=== PATIENT | male | born 1930 | race Caucasian/White ===

== ENCOUNTER 2017-06-21 16:20 | Emergency (ER) | payer MEDICARE, BC ==
[2017-06-21 17:12] VITALS: BP 131/64
--- NOTE | 2017-06-21 17:37 | EDM.PDOC ---
ED HPI GENERAL MEDICAL PROBLEM - General Chief Complaint: Genitourinary Problem Stated Complaint: ISSUES Time Seen by Provider: 06/21/17 17:30 Source of Information: Reports: Patient History Limitations: Reports: No Limitations - History of Present Illness INITIAL COMMENTS - FREE TEXT/NARRATIVE: 87 yo white male c/o constipation feeling since last PM ( Has Ostomy) also PMHx. Prostate Cancer Onset Date: 06/20/17 Onset Time: 09:00 Duration: Hour(s): Location: Reports: Abdomen Quality: Reports: Ache Severity: Moderate Improves with: Reports: None Worsens with: Reports: None Context: Reports: Other (PMHx. Ostomy,Constipation and Prostate Cancer) Associated Symptoms: Reports: No Other Symptoms - Related Data Allergies Allergy/AdvReac Type Severity Reaction Status Date / Time amphotericin B Allergy UNKNOWN Verified 12/01/15 06:04 lactose Allergy Nausea Verified 12/01/15 06:04 lisinopril Allergy Cough Verified 12/01/15 06:04 oxycodone HCl [From Percocet] Allergy Hives Verified 12/01/15 06:04 propoxyphene Allergy UNKNOWN Verified 12/01/15 06:04 simvastatin Allergy Muscle Verified 12/01/15 06:04 Aches terazosin [Terazosin] Allergy UNKNOWN Verified 12/01/15 06:04 verapamil [Verapamil] Allergy UNKNOWN Verified 12/01/15 06:04 Home Meds: Home Meds Cyanocobalamin (Vitamin B-12) [B-12] 1,000 mcg INJECT ASDIRECTED 08/08/14 [ History] Isosorbide Mononitrate [Imdur] 30 mg PO DAILY 08/08/14 [History] Magnesium Oxide 1,500 mg PO TID 08/08/14 [History] Metoprolol Tartrate [Lopressor] 50 mg PO Q12HR 08/08/14 [History] Multivitamin [Multi Vitamin Daily] 1 each PO DAILY 08/08/14 [History] Omeprazole 20 mg PO DAILY 08/08/14 [History] Potassium Gluconate 99 mg PO DAILY 08/08/14 [History] amLODIPine Besylate [Amlodipine Besylate] 5 mg PO DAILY 08/08/14 [History] metFORMIN [Glucophage] 1 tab PO DAILY 11/30/15 [History] Albuterol/Ipratropium [Combivent Respimat] 2 puff IH Q4HR 11/26/16 [History] Amitriptyline [Elavil] 10 mg PO BEDTIME 11/26/16 [History] Furosemide [Furosemide] 40 mg PO DAILY 11/26/16 [History] Insuln Asp Prot/Insulin Aspart [NovoLOG Mix 70-30] 06/21/17 [History] glipiZIDE [Glipizide ER] 5 mg PO DAILY 06/21/17 [History] Past Medical History HEENT History: Reports: Impaired Vision Cardiovascular History: Reports: High Cholesterol, Hypertension Respiratory History: Reports: Other (See Below) Other Respiratory History: one lobe not working Gastrointestinal History: Reports: Chronic Diarrhea, GERD Other Gastrointestinal History: coloscopy Genitourinary History: Reports: Prostate Disorder Musculoskeletal History: Reports: Back Pain, Chronic, Other (See Below) Other Musculoskeletal History: degenerative disc disease, Neurological History: Reports: None Psychiatric History: Reports: None Endocrine/Metabolic History: Reports: Diabetes, Type II Hematologic History: Reports: B12 Deficiency Immunologic History: Reports: None Oncologic (Cancer) History: Reports: Prostate Other Oncologic History: rectal Dermatologic History: Reports: None - Infectious Disease History Infectious Disease History: Reports: Chicken Pox, Measles, Mumps - Past Surgical History GI Surgical History: Reports: Cholecystectomy, Colonoscopy, Colostomy, Hernia Repair/Other Neurological Surgical History: Reports: Laminectomy Musculoskeletal Surgical History: Reports: Other (See Below) Other Musculoskeletal Surgeries/Procedures:: backsurgery Social & Family History - Tobacco Use Smoking Status *Q: Never Smoker Used Tobacco, but Quit: No Second Hand Smoke Exposure: No - Caffeine Use Caffeine Use: Reports: Coffee, Soda - Alcohol Use Days Per Week of Alcohol Use: 0 - Recreational Drug Use Recreational Drug Use: No Drug Use in Last 12 Months: No ED ROS GENERAL - Review of Systems Review Of Systems: See Below Constitutional: Reports: No Symptoms HEENT: Reports: No Symptoms Respiratory: Reports: No Symptoms Cardiovascular: Reports: No Symptoms Endocrine: Reports: No Symptoms GI/Abdominal: Reports: Constipation : Reports: No Symptoms Musculoskeletal: Reports: No Symptoms Skin: Reports: No Symptoms Neurological: Reports: No Symptoms Psychiatric: Reports: No Symptoms Hematologic/Lymphatic: Reports: No Symptoms Immunologic: Reports: No Symptoms ED EXAM, GENERAL - Physical Exam Exam: See Below Exam Limited By: No Limitations General Appearance: Alert, No Apparent Distress Eye Exam: Bilateral Eye: PERRL Ears: Normal External Exam Nose: Normal Inspection Throat/Mouth: Normal Inspection Head: Atraumatic Neck: Normal Inspection Respiratory/Chest: No Respiratory Distress, Lungs Clear Cardiovascular: Normal Peripheral Pulses, Regular Rate, Rhythm GI/Abdominal: Normal Bowel Sounds, Tender (min tenederness to RLQ abdomen), Other (Ostomy on LLQ w/ stool in bag) (Male) Exam: No Hernia Back Exam: Normal Inspection Extremities: Normal Inspection, Normal Range of Motion Neurological: Alert, Oriented, CN II-XII Intact Psychiatric: Normal Affect Skin Exam: Warm Lymphatic: No Adenopathy Course - Vital Signs Last Recorded V/S: Last Vital Signs Temp 37.0 C 06/21/17 17:10 Pulse 86 06/21/17 17:10 Resp 16 06/21/17 17:10 BP 131/64 06/21/17 17:10 Pulse Ox 93 L 06/21/17 17:10 - Orders/Labs/Meds Orders: Active Orders 24 hr Category Date Time Status Abdomen 2V AP Flat Upright [CR] Urgent Exams 06/21/17 17:37 Taken CULTURE URINE [RM] Stat Lab 06/21/17 18:05 Uncollected Levofloxacin [Levaquin] Med 06/21/17 18:23 Once 500 mg PO ONETIME ONE Labs: Laboratory Tests 06/21/17 Range/Units 17:12 Urine Color Yellow (YELLOW) Urine Appearance Clear (CLEAR) Urine pH 6.5 (5.0-9.0) Ur Specific [place] 1.020 (1.005-1.030) Urine Protein 30 H (NEGATIVE) Urine Glucose (UA) Negative (NEGATIVE) Urine Ketones Negative (NEGATIVE) Urine Occult Blood Negative (NEGATIVE) Urine Nitrite Negative (NEGATIVE) Urine Bilirubin Negative (NEGATIVE) Urine Urobilinogen 0.2 (0.2-1.0) mg/dL Ur Leukocyte Esterase Small H (NEGATIVE) Urine RBC Not seen /HPF Urine WBC 5-10 H (0-5/HPF) /HPF Ur Epithelial Cells Rare /HPF Urine Bacteria Few (0-FEW/HPF) /HPF Urine Yeast Many H (0/HPF) /HPF Meds: Medications Discontinued Medications Generic Name Dose Route Start Last Admin Trade Name Freq PRN Reason Stop Dose Admin Fluconazole 100 mg 06/21/17 18:05 Diflucan PO 06/21/17 18:06 ONETIME ONE Departure - Departure Time of Disposition: 18:24 Disposition: Home, Self-Care 01 Condition: Good Clinical Impression: UTI, Urinary tract infectious disease Constipation Qualifiers: Constipation type: slow transit constipation Qualified Code(s): K59.01 - Slow transit constipation - Discharge Information Instructions: Urinary Tract Infection, Adult, [id number], Clean Intermittent Catheterization, Male Forms: ED Department Discharge Additional Instructions: Increase intake of Fluids ( Water / Cranberry juice) Try eating DRIED PRUNES X 2 AND APRICOTS X 2 DAILY TO PROMOTE GOOD BOWEL FUNCTION Take the oral antibiotic for the urinary tract infection: LEVAQUIN 500mg QD # 6 F/U w/ PCP for recheck in 5 days - My Orders Last 24 Hours: My Active Orders 06/21/17 17:37 Abdomen 2V AP Flat Upright [CR] Urgent 06/21/17 18:05 CULTURE URINE [RM] Stat 06/21/17 18:23 Levofloxacin [Levaquin] 500 mg PO ONETIME ONE - Assessment/Plan Last 24 Hours: My Active Orders 06/21/17 17:37 Abdomen 2V AP Flat Upright [CR] Urgent 06/21/17 18:05 CULTURE URINE [RM] Stat 06/21/17 18:23 Levofloxacin [Levaquin] 500 mg PO ONETIME ONE
[2017-06-21] MEDS ORDERED: Fluconazole 100 MG Tab PO ONE (18:05)
[2017-06-21] MEDS ORDERED: Levofloxacin 500 MG Tab PO ONE (18:23)
== END 2017-06-21 18:32 | disposition home or self-care (01) ==
LOC: DL.ED 16:20
DX: K59.01 Slow transit constipation (principal); N39.0 Urinary tract infection, site not specified; I10 Essential (primary) hypertension; E78.00 Pure hypercholesterolemia, unspecified; E11.9 Type 2 diabetes mellitus without complications; Z88.8 Allergy status to other drugs, medicaments and biological substances; Z88.5 Allergy status to narcotic agent; Z88.1 Allergy status to other antibiotic agents; Z79.899 Other long term (current) drug therapy; Z79.84 Long term (current) use of oral hypoglycemic drugs; Z79.4 Long term (current) use of insulin
CPT/HCPCS: 74020; 81001; 99283; A9270

== ENCOUNTER 2017-08-26 17:12 | Inpatient (IN) | payer MEDICARE, BC ==
[2017-08-26] MEDS ORDERED: Albuterol/Ipratropium 3.0-0.5 MG/3 ML Neb Soln NEB ONE (17:34)
[2017-08-26] MEDS: Sodium Chloride 0.9% 10 ML Syringe FLUSH PRN (17:52)
[2017-08-26] MEDS: Furosemide 40 MG/4 ML VIAL IVPUSH ONE (18:35)
--- NOTE | 2017-08-26 18:49 | EDM.PDOC ---
Scribed by Kari Redd 08/26/17 [id number] for Augusto Gardner MD ED HPI GENERAL MEDICAL PROBLEM - General Chief Complaint: Respiratory Problem Stated Complaint: breathing problem [id number] Time Seen by Provider: 08/26/17 17:30 Source of Information: Reports: Patient, Family, Old Records, RN, RN Notes Reviewed History Limitations: Reports: No Limitations - History of Present Illness INITIAL COMMENTS - FREE TEXT/NARRATIVE: Patient arrives from home by POV with progressive shortness of breath and dry cough for over one week. He states that today he became too short of breath to stay at home any longer. He also reports progressively increasing lower extremity edema for one month. Denies fevers or chills. Denies chest pain. He says his appetite has remained good. 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 (Combivent inhaler), Other (see below) - Related Data Allergies Allergy/AdvReac Type Severity Reaction Status Date / Time amphotericin B Allergy UNKNOWN Verified 08/26/17 17:21 lactose Allergy Nausea Verified 08/26/17 17:21 lisinopril Allergy Cough Verified 08/26/17 17:21 oxycodone HCl [From Percocet] Allergy Hives Verified 08/26/17 17:21 propoxyphene Allergy UNKNOWN Verified 08/26/17 17:21 simvastatin Allergy Muscle Verified 08/26/17 17:21 Aches terazosin [Terazosin] Allergy UNKNOWN Verified 08/26/17 17:21 verapamil [Verapamil] Allergy UNKNOWN Verified 08/26/17 17:21 Home Meds: Home Meds Cyanocobalamin (Vitamin B-12) [B-12] 1,000 mcg INJECT ASDIRECTED 08/08/14 [ History] Isosorbide Mononitrate [Imdur] 30 mg PO DAILY 08/08/14 [History] Magnesium Oxide 1,500 mg PO TID 08/08/14 [History] Metoprolol Tartrate [Lopressor] 50 mg PO Q12HR 08/08/14 [History] Multivitamin [Multi Vitamin Daily] 1 each PO DAILY 12/08/14 [History] Omeprazole 20 mg PO DAILY 08/08/14 [History] Potassium Gluconate 99 mg PO DAILY 08/08/14 [History] amLODIPine Besylate [Amlodipine Besylate] 5 mg PO DAILY 08/08/14 [History] metFORMIN [Glucophage] 1 tab PO DAILY 11/30/15 [History] Albuterol/Ipratropium [Combivent Respimat] 2 puff IH Q4HR 11/26/16 [History] Amitriptyline [Elavil] 10 mg PO BEDTIME 11/26/16 [History] Furosemide [Furosemide] 40 mg PO DAILY 11/26/16 [History] Insuln Asp Prot/Insulin Aspart [NovoLOG Mix 70-30] 06/21/17 [History] glipiZIDE [Glipizide ER] 5 mg PO DAILY 06/21/17 [History] Past Medical History HEENT History: Reports: Impaired Vision Cardiovascular History: Reports: Heart Failure, High Cholesterol, Hypertension, Other (See Below) (atrial flutter) Respiratory History: Reports: Other (See Below) (cryptococcal lung disease) Other Respiratory History: one lobe not working Gastrointestinal History: Reports: Chronic Constipation, Chronic Diarrhea, GERD Other Gastrointestinal History: coloscopy Genitourinary History: Reports: BPH, Retention, Urinary, UTI, Recurrent, Other ( See Below) (prostate cancer.) Musculoskeletal History: Reports: Back Pain, Chronic, Other (See Below) Other Musculoskeletal History: degenerative disc disease, Neurological History: Reports: None Psychiatric History: Reports: None Endocrine/Metabolic History: Reports: Diabetes, Type II Hematologic History: Reports: B12 Deficiency Immunologic History: Reports: None Oncologic (Cancer) History: Reports: Prostate Other Oncologic History: rectal Dermatologic History: Reports: None - Infectious Disease History Infectious Disease History: Reports: Chicken Pox, Measles, Mumps - Past Surgical History GI Surgical History: Reports: Cholecystectomy, Colonoscopy, Colostomy, Hernia Repair/Other Neurological Surgical History: Reports: Laminectomy Musculoskeletal Surgical History: Reports: Other (See Below) Other Musculoskeletal Surgeries/Procedures:: backsurgery Social & Family History - Family History Family Medical History: Noncontributory - Tobacco Use Smoking Status *Q: Never Smoker Used Tobacco, but Quit: No Second Hand Smoke Exposure: No - Caffeine Use Caffeine Use: Reports: Coffee, Soda - Alcohol Use Days Per Week of Alcohol Use: 0 - Recreational Drug Use Recreational Drug Use: No Drug Use in Last 12 Months: No - Living Situation & Occupation Living situation: Reports: , with Spouse Occupation: Retired ED ROS GENERAL - Review of Systems Review Of Systems: ROS reveals no pertinent complaints other than HPI. ED EXAM, GENERAL - Physical Exam Exam: See Below Exam Limited By: No Limitations General Appearance: Alert, WD/WN, Mild Distress (slightly labored breathing) Eye Exam: Bilateral Eye: Normal Inspection Ears: Normal External Exam, Normal Canal, Hearing Grossly Normal, Normal TMs Nose: Normal Inspection, Normal Mucosa, No Blood Throat/Mouth: Normal Inspection, Normal Lips, Normal Teeth, Normal Gums, Normal Oropharynx, Normal Voice, No Airway Compromise Head: Atraumatic, Normocephalic Neck: Normal Inspection, Supple, Non-Tender, Full Range of Motion Respiratory/Chest: No Accessory Muscle Use, Decreased Breath Sounds, Rales ( bilateral), Other (Absent breath sounds at left lung base. ) Cardiovascular: Regular Rate, Rhythm, No Murmur, No Rub, JVD, Other (3+ pitting edema to knees bilateral.) GI/Abdominal: Normal Bowel Sounds, Soft, Non-Tender, No Organomegaly, No Distention, No Abnormal Bruit, No Mass (Male) Exam: Deferred Rectal (Males) Exam: Deferred Back Exam: Normal Inspection, Full Range of Motion, NT Extremities: Normal Range of Motion, Non-Tender, Other (normal except for pitting edema as described above.) Neurological: Alert, Oriented, CN II-XII Intact, Normal Cognition, Normal Gait, No Motor/Sensory Deficits Psychiatric: Normal Affect, Normal Mood Skin Exam: Warm, Dry, Intact, Normal Color, No Rash EKG INTERPRETATION EKG Date: 08/26/17 Time: 17:55 Rhythm: A-Flutter Rate (Beats/Min): 60 [place]: Normal P-Wave: Present QRS: Other (4:1 AV block) ST-T: Normal QT: Normal Comparison: No Change (from 10/22/16) Course - Vital Signs Last Recorded V/S: Last Vital Signs Temp 37.0 C 08/26/17 18:20 Pulse 59 L 08/26/17 18:20 Resp 24 H 08/26/17 18:20 BP 135/51 L 08/26/17 18:20 Pulse Ox 82 L 08/26/17 17:33 - Orders/Labs/Meds Orders: Active Orders 24 hr Category Date Time Status EKG 12 Lead [EKG Documentation Completion] [RC] STAT Care 08/26/17 17:37 Active Peripheral IV Care [RC] . DIRECTED Care 08/26/17 17:37 Active RT Aerosol Therapy [RC] ASDIRECTED Care 08/26/17 17:34 Active CULTURE BLOOD [BC] Stat Lab 08/26/17 17:54 Received CULTURE BLOOD [BC] Stat Lab 08/26/17 18:31 Received UA W/MICROSCOPIC [URIN] Stat Lab 08/26/17 18:27 Received Sodium Chloride 0.9% [Saline Flush] Med 08/26/17 17:37 Active 10 ml FLUSH ASDIRECTED PRN Blood Culture x2 Reflex Set [OM.PC] Stat Oth 08/26/17 17:37 Ordered Peripheral IV Insertion Adult [OM.PC] Stat Oth 08/26/17 17:37 Ordered Medication Orders Sodium Chloride (Saline Flush) 10 ml FLUSH ASDIRECTED PRN PRN Reason: Keep Vein Open Last Admin: 08/26/17 17:52 Dose: 10 ml Labs: Laboratory Tests 08/26/17 08/26/17 08/26/17 Range/Units 17:45 17:45 17:54 WBC 5.9 (5.0-10.0) 10^3/uL RBC 3.77 L (4.6-6.2) 10^6/uL Hgb 12.0 L (14.0-18.0) g/dL Hct 37.7 L (40.0-54.0) % MCV 100.0 D (80-100) fL MCH 31.8 (27.0-34.0) pg MCHC 31.8 L (33.0-35.0) g/dL Plt Count 166 (150-450) 10^3/uL Neut % (Auto) 76.6 H (42.2-75.2) % Lymph % (Auto) 11.0 L (20.5-50.1) % Wise % (Auto) 10.7 H (2-8) % Eos % (Auto) 1.2 (1.0-3.0) % Baso % (Auto) 0.5 (0.0-1.0) % Sodium 137 (135-145) mmol/L Potassium 4.1 (3.6-5.0) mmol/L Chloride 97 L (101-111) mmol/L Carbon Dioxide 32.0 H (21.0-31.0) mmol/L Anion Gap 12.1 BUN 25 H (7-18) mg/dL Creatinine 1.2 (0.6-1.3) mg/dL Est Cr Clr Drug Dosing 45.63 mL/min Estimated GFR (MDRD) 57 BUN/Creatinine Ratio 20.83 Glucose 171 H (74-105) mg/dL Lactic Acid 2.8 H (0.5-2.2) mmol/L Calcium 8.7 (8.4-10.2) mg/dl Total Bilirubin 0.9 (0.2-1.0) mg/dL AST 28 (10-42) IU/L ALT 14 (10-60) IU/L Alkaline Phosphatase 34 L (42-121) IU/L Troponin I 0.04 H* (0.00-0.02) ng/ml B-Natriuretic Peptide 273 H (0-100) pg/ml Total Protein 6.8 (6.7-8.2) g/dl Albumin 4.3 (3.2-5.5) g/dl Globulin 2.5 Albumin/Globulin Ratio 1.72 Meds: Medications Generic Name Dose Route Start Last Admin Trade Name Freq PRN Reason Stop Dose Admin Sodium Chloride 10 ml 08/26/17 17:37 08/26/17 17:52 Saline Flush FLUSH 10 ml ASDIRECTED PRN Administration Keep Vein Open Discontinued Medications Generic Name Dose Route Start Last Admin Trade Name Freq PRN Reason Stop Dose Admin Albuterol/Ipratropium 3 ml 08/26/17 17:34 08/26/17 17:42 Duoneb 3.0-0.5 Mg/3 Ml NEB 08/26/17 17:35 3 ml ONETIME ONE Administration Furosemide 40 mg 08/26/17 18:24 08/26/17 18:35 Lasix IVPUSH 08/26/17 18:25 40 mg NOW ONE Administration - Radiology Interpretation Free Text/Narrative:: Chest x-ray: Segmental ateletasis in left lower lobe which is more pronounced as compared to prior x-rays. Chronic elevation of left hemidiaphragm. See Rad report. Departure - Departure Time of Disposition: 18:41 (Admit to Dr. Contreras for Dr. Kemp) Disposition: Admitted As Inpatient 67 Condition: Serious Clinical Impression: Chronic atrial flutter, Hypoxia Pulmonary edema Qualifiers: Chronicity: acute Qualified Code(s): J81.0 - Acute pulmonary edema CHF (congestive heart failure) Qualifiers: Congestive heart failure type: unspecified congestive heart failure type Congestive heart failure chronicity: acute on chronic Qualified Code(s): I50.9 - Heart failure, unspecified - Discharge Information Forms: ED Department Discharge - My Orders Last 24 Hours: My Active Orders 08/26/17 17:34 RT Aerosol Therapy [RC] ASDIRECTED 08/26/17 17:37 EKG 12 Lead [EKG Documentation Completion] [RC] STAT Peripheral IV Care [RC] . DIRECTED Sodium Chloride 0.9% [Saline Flush] 10 ml FLUSH ASDIRECTED PRN Blood Culture x2 Reflex Set [OM.PC] Stat Peripheral IV Insertion Adult [OM.PC] Stat 08/26/17 17:54 CULTURE BLOOD [BC] Stat 08/26/17 18:27 UA W/MICROSCOPIC [URIN] Stat 08/26/17 18:31 CULTURE BLOOD [BC] Stat - Assessment/Plan Last 24 Hours: My Active Orders 08/26/17 17:34 RT Aerosol Therapy [RC] ASDIRECTED 08/26/17 17:37 EKG 12 Lead [EKG Documentation Completion] [RC] STAT Peripheral IV Care [RC] . DIRECTED Sodium Chloride 0.9% [Saline Flush] 10 ml FLUSH ASDIRECTED PRN Blood Culture x2 Reflex Set [OM.PC] Stat Peripheral IV Insertion Adult [OM.PC] Stat 08/26/17 17:54 CULTURE BLOOD [BC] Stat 08/26/17 18:27 UA W/MICROSCOPIC [URIN] Stat 08/26/17 18:31 CULTURE BLOOD [BC] Stat I have read and agree with the documentation that has been completed regarding this visit. By signing this record, I attest that the documentation was completed in my physical presence and is an accurate record of the encounter.
[2017-08-26] MEDS ORDERED: CLOBETASOL PROPIONATE 0.05% TOP PRN (21:06)
[2017-08-26] MEDS: cefTRIAXone 1 GM Vial IVPUSH SCH (22:32)
[2017-08-26] MEDS: Amitriptyline 10 MG Tab PO SCH (22:32)
[2017-08-26] MEDS: Albuterol/Ipratropium 3.0-0.5 MG/3 ML Neb Soln NEB PRN (23:06)
[2017-08-27] MEDS: Albuterol/Ipratropium 3.0-0.5 MG/3 ML Neb Soln NEB PRN (03:29)
[2017-08-27] MEDS ORDERED: Furosemide 40 MG/4 ML VIAL IVPUSH ONE (04:06)
[2017-08-27] MEDS: Omeprazole 20 MG Cap.CR PO SCH (06:15)
[2017-08-27] MEDS: Isosorbide Mononitrate 30 MG Tab.ER PO SCH (06:20)
[2017-08-27] MEDS ORDERED: NOVOLOG MIX SQ SCH ×2 (08:00→09:00)
[2017-08-27] MEDS: amLODIPine 5 MG Tab PO SCH (09:15)
[2017-08-27] MEDS: glipiZIDE 5 MG Tab PO SCH ×2 (09:15→18:19)
[2017-08-27] MEDS: Multivitamins,Therapeutic Tab PO SCH (09:15)
[2017-08-27] MEDS: Metoprolol Tartrate 50 MG Tab PO SCH ×2 (09:16→21:41)
[2017-08-27] MEDS: Insulin Aspart 100 Units/ML 3 ML Pen SUBCUT SCH ×4 (09:19→21:44)
--- NOTE | 2017-08-27 11:04 | HP ---
HISTORY OF PRESENT ILLNESS: Mr. Guerra is an 87-year-old male, who was admitted because of worsening shortness of breath in the last 1 week associated with cough of whitish phlegm. No reported fever or chills. Noticed some chest discomfort, which is better with sitting up. The patient was admitted in [place] for CHF exacerbation last October. He reports compliance with his diuretics. However, family member might have suspected he might have added some salt on his diet. Noticed worsening of the lower extremity edema, right more than the left. Three days ago, he just obtained a pair of compression socks from them. Otherwise bowel movement has been regular. He has a colostomy bag and they have been getting output regularly with no melena or hematochezia. The also noticed some weight gain. PAST MEDICAL HISTORY: Diabetes, CHF, anemia, rectal cancer, B12 deficiency, hypertension, history of urinary tract infection. The patient also does self catheterization at home. Social History: lives at home with who has a diagnosis of dementia. MEDICATIONS: Reviewed. Allergies: reviewed. REVIEW OF SYSTEMS: Ten systems reviewed and were negative except for those mentioned above. PHYSICAL EXAMINATION: Vital Signs: Blood pressure 135/51, heart rate 59 beats per minute, respirations 24 breaths per minute, oxygen saturation 93% on 3 L. General Appearance: Awake, in distress. HEENT: Normocephalic, atraumatic. Eyes, anicteric sclerae. CVS: Regular rate and rhythm. Chest: Symmetric chest expansion. Lungs: Bilateral air entry. Crackles noted both lung arndt. Gastrointestinal: Soft. Normoactive bowels. Extremities: Grade 2 pitting edema. Skin: Some chronic hyperpigmentation in both lower extremities. Good posterior tibial pulses bilaterally. Dorsalis pedis, unable to be felt due to edema. Neurologic: Awake, alert, and oriented. LABORATORY DATA: Initial troponin 0.04. Hemoglobin 12.0, platelet count 166. GFR is 57, lactic acid 2.8. Urinalysis; urine wbc's 40-50 with leukocyte esterase, small. ASSESSMENT/PLAN: Patient with worsening shortness of breath and leg edema. The patient with a history of CHF. Patient was noted to be given IV Lasix in the emergency room. We will continue to monitor strict input and output, monitoring daily weights. Salt restricted diet. Continue with oxygen supplementation with the aim to be tapered off oxygen and able to maintain oxygen saturation on ambulation. Having incentive spirometry and flutter valve. Abnormal troponin may be from demand ischemia, we will repeat that. The patient denies any anginal chest pain. Continue the rest of his medications. Continue with compression wraps. Blood cultures were drawn in the emergency room, we will follow up on the results, but urinalysis with findings of possible infection and with his history of UTI, we will do IV Rocephin. His hemoglobin is in the anemic range, which is chronic for him. We will monitor periodically. We will follow the patient in the medical-surgical bed. CODE STATUS: Full. [facility] /[id number] MTDD
[2017-08-27] MEDS: NOVOLOG MIX SUBCUT SCH ×2 (12:47→17:42)
[2017-08-27] MEDS: ELIQUIS 2.5 MG PO SCH ×2 (12:53→21:45)
[2017-08-27] MEDS: MYRBETRIQ 50 MG PO SCH (12:56)
[2017-08-27] MEDS: POTASSIUM GLUCONATE 595 MG PO SCH ×2 (12:59→21:49)
[2017-08-27] MEDS: MAGNESIUM OXIDE 500 MG PO SCH ×2 (16:56→21:46)
[2017-08-27] MEDS ORDERED: Insulin Lispro Protamine/Lispro 75-25 100 Units/ML 10 ML Vial SUBCUT SCH (17:00)
[2017-08-27] MEDS: Furosemide 40 MG/4 ML VIAL IVPUSH SCH (18:00)
[2017-08-27] MEDS ORDERED: Aspirin 81 MG Tab.EC PO SCH (18:00)
[2017-08-27] MEDS: Furosemide 40 MG/4 ML VIAL IVPUSH ONE (18:10)
[2017-08-27] MEDS ORDERED: Amitriptyline 10 MG Tab PO SCH (21:00)
[2017-08-27] MEDS: Amitriptyline 10 MG Tab PO SCH (21:36)
[2017-08-27] MEDS: Sodium Chloride 0.9% 10 ML Syringe FLUSH PRN (22:34)
[2017-08-27] MEDS: cefTRIAXone 1 GM Vial IVPUSH SCH (22:36)
[2017-08-28] MEDS: Isosorbide Mononitrate 30 MG Tab.ER PO SCH (06:12)
[2017-08-28] MEDS: Omeprazole 20 MG Cap.CR PO SCH (06:14)
[2017-08-28 06:50] LABS: CHLORIDE,CL 90 mmol/L (101-111); SODIUM,NA 138 mmol/L (135-145)
[2017-08-28] MEDS: glipiZIDE 5 MG Tab PO SCH (08:50)
[2017-08-28] MEDS: NOVOLOG MIX SUBCUT SCH ×2 (08:50→13:29)
[2017-08-28] MEDS: amLODIPine 5 MG Tab PO SCH (08:50)
[2017-08-28] MEDS: ELIQUIS 2.5 MG PO SCH (08:51)
[2017-08-28] MEDS: MAGNESIUM OXIDE 500 MG PO SCH ×2 (08:51→13:32)
[2017-08-28] MEDS: Multivitamins,Therapeutic Tab PO SCH (08:51)
[2017-08-28] MEDS: Metoprolol Tartrate 50 MG Tab PO SCH (08:51)
[2017-08-28] MEDS: Insulin Aspart 100 Units/ML 3 ML Pen SUBCUT SCH ×2 (08:51→13:30)
[2017-08-28] MEDS: Furosemide 40 MG/4 ML VIAL IVPUSH SCH (08:51)
[2017-08-28] MEDS ORDERED: Furosemide 40 MG/4 ML VIAL IVPUSH ONE (09:42)
--- NOTE | 2017-08-28 09:57 | CR ---
CLINICAL HISTORY: 87-year-old male complaining of shortness of breath. INTERPRETATION: Left infrahilar mass and ipsilateral lower lobe atelectasis that appears in retrospec t to have been present on [address] scan chest with this patient with right supr aclavicular central venous line. Chronic cardiomegaly but no current cephalization of vascular flow, signs of alveolar edema or apprec iable dependent new pleural fluid accumulation. No other focal lobar consolidation (infiltrate/atelectasis). Chronic asymmetric elevation left hemidi aphragm consistent with underlying lower lobe atelectasis on the left. Abnormality left lung base sim ilar in appearance to 22 October 2016 exam (suggest left infrahilar mass lesion with underlying lowe r lobe atelectasis/collapse.
--- NOTE | 2017-08-28 10:02 | PN ---
DATE: 08/27/2017 HISTORY OF PRESENT ILLNESS: Mr. Guerra is an 87-year-old male, admitted because of shortness of breath, admitted as a case of acute exacerbation. Was given IV Lasix yesterday and diuresing well. Noticed some improvement of his breathing, still coughing. No chest pain. Able to get good sleep last night. Ambulating around the room without any problems. Still on oxygen supplementation. PHYSICAL EXAMINATION: Vital Signs: Blood pressure 132/54, heart rate of 63 beats per minute, respirations 20 breaths per minute, oxygen saturation 93%, temperature 98.4. General Appearance: Awake, not in distress. Speaking in sentences. CVS: Regular rate and rhythm. Abdomen: Soft. Normoactive bowel sounds. Extremities: Bilateral pitting edema. LABORATORIES: Potassium 3.5, creatinine 1.2. GFR 57. Creatinine clearance 46. Troponin is staying the same at 0.04. Lactic acid is normalized at 0.8. ASSESSMENT AND PLAN: We will continue to monitor input and output and daily weights. The patient is now losing some weight and is negative balance. We will try to wean off oxygen supplementation, and we will have his oxygen measured on ambulation. We will recheck BMP, BNP, and CBC tomorrow. As far as diabetes, he had an episode of hypoglycemia. We will hold nighttime dose of insulin. We will continue to monitor sugars. The patient is very good with managing his own sugars and insulin at home. Today, we have also sat down and discussed in regard to adhering to a low-salt diet and educational material was handed to the patient as to how he can achieve this at home. 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 We will continue to follow the patient in the medical-surgical bed. [facility] /[id number] KALI
[2017-08-28 11:48] VITALS: BP 106/64
--- NOTE | 2017-08-28 13:05 | DISCH ---
FINAL DIAGNOSES: 1. Congestive heart failure exacerbation. 2. Diabetes mellitus. 3. Chronic anemia. 4. Obstructive sleep apnea. 5. Urinary tract infection. 6. Atrial fibrillation. BRIEF HISTORY AND PHYSICAL: The patient is an 87-year-old male admitted because of worsening shortness of breath and leg swelling for quite a while. Has prior hospitalizations due to CHF exacerbation. Apparently, the patient has not been that compliant with salt-restricted diet. He reports compliance to his medications, especially his Lasix 40 mg daily. He clearly denies any chest pain. Also, reports that he has had urinary tract infection in the past and he does self-catheterization at home if needed. Vital Signs: On examination showed 142/55, heart rate of 60 beats per minute, respirations 20 breaths per minute, oxygen saturation 82% on 3 L. General Appearance: Awake, in distress. Chest: Symmetric expansion. Lungs with bilateral air entry, but crackles noted. Extremities: Bipedal pitting edema. Initial laboratory showed hemoglobin of 12.0, platelets 166. Initial troponin 0.04. Repeat troponin 0.04. Creatinine 1.2. GFR 57. Creatinine clearance 45. Potassium 4.1. Urinalysis showed small leukocyte esterase, urine rbc's 5 to 10, urine wbc's 40 to 50. Microbiologic studies showed no growth of blood culture after 1 day. Urine culture showed more than 100,000 gram-negative rods. HOSPITAL COURSE: The patient was admitted under Medical-Surgical bed. He was already given IV Lasix in the emergency room. Electrolytes monitored as well as renal function monitored. Strict input and output done and daily weights done. The patient was noted to be negative balance since admission. Also, urine culture showed some findings suggestive of urinary tract infection, started on antibiotic. Subsequently, the patient started to feel better, although not able to maintain good oxygen on room air. Exercise desaturation study done. Resting oxygen showed 83% and 91% on 2 L oxygen with a heart rate of 57 beats per minute. Exercise measurements showed the patient saturated 88% on 2 L at 0.5 minute of exercise, 90% on 3 L at 1-minute exercise, 88% on 3 L at 3-minute exercise, 93% on 4 L at 6-minute exercise. Post exercise measurement showed 1- minute post exercise of 93% on 4 L with a heart rate of 49 and 5 minutes post exercise showed 95% on 4 L of oxygen with heart rate of 55. The patient otherwise tolerated the procedure well. Advised to be compliant to CPAP and his oxygen. The patient prefers if he can have a concentrator, so that he can remain ambulatory at home as he takes care of his . PHYSICAL EXAMINATION: Vital Signs: On discharge, showed blood pressure of 135/51, heart rate 59 beats per minute, respirations 24 breaths per minute, oxygen saturation 93% on 3 L. General Appearance: Awake, in distress. Speaking in sentences. Chest: Symmetric chest expansion. Lungs with bilateral air entry. Cardiovascular: Regular rate and rhythm. Abdomen: Soft. Normoactive bowel sounds. Extremities: Bipedal edema. DISCHARGE INSTRUCTIONS: The patient is stable to be discharged home with oxygen supplementation to obtained from [facility]; compliance to oxygen and CPAP. We will increase his Lasix to 40 mg q.12 hours, and potassium supplement. Follow up with Dr. Kemp in 1 week with blood test in the morning. The patient is stable to be discharged home. [facility] /[id number] KALI
[2017-08-28] MEDS: MYRBETRIQ 50 MG PO SCH (13:32)
[2017-08-28] MEDS ORDERED: Furosemide 40 MG/4 ML VIAL IVPUSH SCH (14:00)
[2017-08-28] MEDS ORDERED: hydrOXYzine HCl 25 MG Tab PO SCH (21:00)
--- NOTE | 2017-08-29 08:12 | EKG ---
08/26/2017- ISAAK CORONA - EKG done on an 87-year-old male, showing atrial flutter with ratio of 4:1, heart rate of 60 beats per minute. Changes noted on lateral leads and inferior leads. They were also noted on previous EKG done on 11/25/2016, in [facility]. [facility] /[id number]
== END 2017-08-28 16:25 | disposition home or self-care (01) | DRG 292 ==
LOC: DL.ED 17:12 → DL.MS 19:12 → UNDOADMIN 19:12 → DL.MS 21:03 → UNDODISIN 08-28 16:25
PROVIDERS: ADMIT Internal Medicine; ATTEND Internal Medicine
DX: J81.0 Acute pulmonary edema (principal); R09.02 Hypoxemia; I48.92 Unspecified atrial flutter; I11.0 Hypertensive heart disease with heart failure; N39.0 Urinary tract infection, site not specified; I50.9 Heart failure, unspecified; E11.9 Type 2 diabetes mellitus without complications; D64.9 Anemia, unspecified; C61 Malignant neoplasm of prostate; G47.33 Obstructive sleep apnea (adult) (pediatric); I48.91 Unspecified atrial fibrillation; E78.00 Pure hypercholesterolemia, unspecified; K21.9 Gastro-esophageal reflux disease without esophagitis; N40.1 Benign prostatic hyperplasia with lower urinary tract symptoms; R33.8 Other retention of urine; G89.29 Other chronic pain; Z88.8 Allergy status to other drugs, medicaments and biological substances; Z79.84 Long term (current) use of oral hypoglycemic drugs; Z79.4 Long term (current) use of insulin; Z79.899 Other long term (current) drug therapy
CPT/HCPCS: 36415; 71020; 80053; 81001; 83605; 83880; 84443; 84484; 85025; 87040 ×2; 87086; 93005; 93010; 94640; 96374; 99285; J1940; J7050; 80048; 82962; 85027; 87088; 87186; 99284; A9270-GY; J0696; J1642; J1815-GY

== ENCOUNTER 2018-01-14 09:59 | Day surgery (SDC) | payer MEDICARE, BC ==
[2018-01-14] MEDS ORDERED: Dexamethasone 4 MG/ML SDV IV ONE (10:00)
[2018-01-14] MEDS ORDERED: Sodium Chloride 0.9% 10 ML Syringe IV ONE (10:00)
[2018-01-14] MEDS ORDERED: Midazolam 1 MG/ML 2 ML SDV IV ONE (10:00)
[2018-01-14] MEDS ORDERED: Acetaminophen 325 MG Tab PO PRN (10:30)
[2018-01-14] MEDS ORDERED: Phenylephrine 10% Ophth Soln 5 ML Bot EYELF PRN (10:30)
[2018-01-14] MEDS ORDERED: Povidone-Iodine 5% Sterile Ophth Soln 30 ML Bottle EYELF ONE ×2 (10:30→11:08)
[2018-01-14] MEDS ORDERED: Moxifloxacin 0.5% Ophth Soln 3 ML Bottle EYELF ONE (10:30)
[2018-01-14] MEDS ORDERED: Cataract Ophth Solution EYELF ONE (10:30)
[2018-01-14] MEDS ORDERED: Proparacaine 0.5% Ophth Soln 15 ML Bottle EYELF ONE (10:30)
[2018-01-14] MEDS ORDERED: Phenylephrine 10% Ophth Soln 5 ML Bot EYELF ONE (10:30)
[2018-01-14] MEDS ORDERED: Timolol Maleate 0.5% Ophth Soln 5 ML Bottle EYELF ONE (10:30)
[2018-01-14] MEDS ORDERED: Ondansetron 4 MG/2 ML SDV IVPUSH PRN (10:30)
[2018-01-14] MEDS: Sodium Chloride 0.9% 10 ML Syringe FLUSH PRN ×2 (10:46→12:16)
[2018-01-14] MEDS ORDERED: Tetracaine HCl/PF 0.5% 4 ML Bottle EYELF ONE (11:07)
[2018-01-14] MEDS ORDERED: Lidocaine 1% 30 ML SDV INJECT ONE (11:12)
[2018-01-14] MEDS ORDERED: Vancomycin 500 MG SDV EYELF ONE (11:14)
[2018-01-14] MEDS ORDERED: Balanced Salt Solution Ophth Irrig 500 ML Bottle IOCULAR ONE (11:16)
[2018-01-14] MEDS ORDERED: Chondroitin Sulfate/Hyaluronate Sodium Ophth Inj 0.75 ML Syringe EYELF ONE (11:18)
[2018-01-14] MEDS ORDERED: Apraclonidine 0.5% Ophth Soln 5 ML Bot EYELF ONE (11:28)
[2018-01-14] MEDS ORDERED: Dexamethasone/Neomycin/Polymyxin B Ophth Oint 3.5 GM Tube EYELF ONE (11:29)
--- NOTE | 2018-01-14 12:05 | OR ---
DATE: 01/14/2018 PREOPERATIVE DIAGNOSIS: Visually significant mixed cataract, left eye. POSTOPERATIVE DIAGNOSIS: Visually significant mixed cataract, left eye. PROCEDURE: Extracapsular cataract extraction with intraocular lens implant, left eye. ANESTHESIA: Topical/local MAC. COMPLICATIONS: None. INDICATION: Mr. Guerra was seen in the clinic. He is unhappy with his vision. He has noticed a progressive change. His clinical examination reveals visually significant cataract with best spectacle correction of 20/40. Slit lamp examination reveals 2 to 3+ mixed nuclear and cortical cataract. I explained options; I offered cataract surgery; and I explained risks including the potential for infection, retinal detachment, and loss of vision amongst others. We discussed implant options. He has requested a toric implant. OPERATIVE DESCRIPTION: After informed consent was obtained and the risks, benefits, and alternatives were explained, the patient was brought to the operative suite and topical anesthesia was administered. The patient was then prepped and draped in the sterile fashion, and attention was placed on the left eye. A sterile lid speculum was placed into the left eye to allow operative exposure. A full-thickness paracentesis was made in the temporal portion of the operative eye. Preservative-free lidocaine 0.1 mL was injected into the anterior chamber followed by viscoelastic. A full-thickness corneal incision was then made into the anterior chamber. A bent needle cystotome was used to create a small sharyn in the anterior capsule. The capsulorrhexis forceps was then used to create a 360-degree curvilinear capsulorrhexis. The nucleus was then removed using a phacoemulsification handpiece, and the remaining cortical material was then removed with irrigation and aspiration handpiece. Following removal of the cortical material, the capsular bag was then inspected and noted to be free of any holes or tears. Viscoelastic was then injected into the capsular bag, and the intraocular lens was inserted into the capsular bag. Implant was oriented to correspond with preoperative corneal rodríguez made with the patient in the upright position. The viscoelastic material was then removed from both the anterior and posterior chambers and from behind the IOL. The lens and capsular bag were then reinspected. The IOL was well centered and the capsular bag intact. The wound and paracentesis sites were inspected and hydrated with balanced saline solution. Both were found to be self-sealing. The intraocular pressure was assessed digitally and found to be within normal range. A good red reflex was noted at the completion of the procedure. No complications occurred during the operation. At the completion of the procedure, Maxitrol, Voltaren, and Iopidine drops were placed into the operative eye. A sterile eye shield was placed over the operative eye, and the patient was transported to the postoperative recovery area having tolerated the procedure well. Postoperative instructions were given along with a postoperative appointment. The patient was advised to call with any questions or concerns. [facility] /[id number]
[2018-01-14 14:00] VITALS: BP 152/60
== END 2018-01-14 12:31 | disposition home or self-care (01) ==
LOC: DL.SDS 09:59
PROVIDERS: ATTEND Ophthalmology
DX: H26.9 Unspecified cataract (principal); I10 Essential (primary) hypertension; E78.5 Hyperlipidemia, unspecified; E11.9 Type 2 diabetes mellitus without complications; I25.10 Atherosclerotic heart disease of native coronary artery without angina pectoris; I42.9 Cardiomyopathy, unspecified; K21.9 Gastro-esophageal reflux disease without esophagitis; D64.9 Anemia, unspecified; M48.00 Spinal stenosis, site unspecified; M19.90 Unspecified osteoarthritis, unspecified site; F41.1 Generalized anxiety disorder; Z85.828 Personal history of other malignant neoplasm of skin
CPT/HCPCS: 00142; 66984; A9270; J1100; J1642; J2250; J3370; J7050; V2787

== ENCOUNTER 2018-01-21 09:40 | Day surgery (SDC) | payer MEDICARE, BC ==
[2018-01-21] MEDS ORDERED: Sodium Chloride 0.9% 10 ML Syringe IV ONE (09:41)
[2018-01-21] MEDS ORDERED: Midazolam 1 MG/ML 2 ML SDV IV ONE (09:41)
[2018-01-21] MEDS ORDERED: Dexamethasone 4 MG/ML SDV IV ONE (09:41)
[2018-01-21] MEDS: Phenylephrine 10% Ophth Soln 5 ML Bot EYERT ONE ×2 (09:59→10:40)
[2018-01-21] MEDS ORDERED: Proparacaine 0.5% Ophth Soln 15 ML Bottle EYERT ONE (10:00)
[2018-01-21] MEDS ORDERED: Dilation Soln 1 EA EACH EYERT ONE (10:00)
[2018-01-21] MEDS ORDERED: Moxifloxacin 0.5% Ophth Soln 3 ML Bottle EYERT ONE (10:00)
[2018-01-21] MEDS ORDERED: Ondansetron 4 MG/2 ML SDV IVPUSH PRN (10:00)
[2018-01-21] MEDS ORDERED: Acetaminophen/Codeine 300-30 MG Tab PO PRN (10:00)
[2018-01-21] MEDS ORDERED: Timolol Maleate 0.5% Ophth Soln 5 ML Bottle EYERT ONE (10:00)
[2018-01-21] MEDS ORDERED: Povidone-Iodine 5% Sterile Ophth Soln 30 ML Bottle EYERT ONE ×2 (10:00→11:30)
[2018-01-21] MEDS ORDERED: Acetaminophen 325 MG Tab PO PRN (10:00)
[2018-01-21] MEDS: Sodium Chloride 0.9% 10 ML Syringe FLUSH PRN ×2 (10:07→12:16)
[2018-01-21] MEDS ORDERED: Tetracaine HCl/PF 0.5% 4 ML Bottle EYERT ONE (11:29)
[2018-01-21] MEDS ORDERED: Lidocaine 1% 30 ML SDV ONE (11:30)
[2018-01-21] MEDS ORDERED: Balanced Salt Solution Ophth Irrig 500 ML Bottle IOCULAR ONE (11:30)
[2018-01-21] MEDS ORDERED: Chondroitin Sulfate/Hyaluronate Sodium Ophth Inj 0.75 ML Syringe EYERT ONE (11:30)
[2018-01-21] MEDS ORDERED: Apraclonidine 0.5% Ophth Soln 5 ML Bot EYERT ONE (11:31)
[2018-01-21] MEDS ORDERED: Dexamethasone/Neomycin/Polymyxin B Ophth Oint 3.5 GM Tube EYERT ONE (11:31)
[2018-01-21] MEDS ORDERED: Vancomycin 500 MG SDV EYERT ONE (11:31)
--- NOTE | 2018-01-21 12:00 | OR ---
DATE: 01/21/2018 PREOPERATIVE DIAGNOSIS: Visually significant mixed cataract, right eye. POSTOPERATIVE DIAGNOSIS: Visually significant mixed cataract, right eye. PROCEDURE: Extracapsular cataract extraction with intraocular lens implant, right eye. ANESTHESIA: Topical/local MAC. COMPLICATIONS: None. INDICATION: Mr. Guerra was seen in the clinic. He is unhappy with his vision and has noticed a progressive change. His clinical examination revealed mixed nuclear and central cortical cataract. Examination also revealed moderate astigmatism. I explained options to Mr. Guerra. I offered cataract surgery; and I explained risks including but not limited to infection, retinal detachment, loss of vision, and need for additional surgery amongst others. We discussed implant options. He has requested a toric implant. OPERATIVE DESCRIPTION: After informed consent was obtained and the risks, benefits, and alternatives were explained, the patient was brought to the operative suite and topical anesthesia was administered. The patient was then prepped and draped in the sterile fashion, and attention was placed on the right eye. A sterile lid speculum was placed into the right eye to allow operative exposure. A full-thickness paracentesis was made in the temporal portion of the operative eye. Preservative-free lidocaine 0.1 mL was injected into the anterior chamber followed by viscoelastic. A full-thickness corneal incision was then made into the anterior chamber. A bent needle cystotome was used to create a small sharyn in the anterior capsule. The capsulorrhexis forceps was then used to create a 360-degree curvilinear capsulorrhexis. The nucleus was then removed using a phacoemulsification handpiece, and the remaining cortical material was then removed with irrigation and aspiration handpiece. Following removal of the cortical material, the capsular bag was then inspected and noted to be free of any holes or tears. Viscoelastic was then injected into the capsular bag, and the intraocular lens was inserted into the capsular bag. The implant was oriented to correspond with preoperative corneal rodríguez made with the patient in the upright position. The viscoelastic material was then removed from both the anterior and posterior chambers and from behind the IOL. The lens and capsular bag were then reinspected. The IOL was well centered and the capsular bag intact. The wound and paracentesis sites were inspected and hydrated with balanced saline solution. Both were found to be self-sealing. The intraocular pressure was assessed digitally and found to be within normal range. A good red reflex was noted at the completion of the procedure. No complications occurred during the operation. At the completion of the procedure, Maxitrol, Voltaren, and Iopidine drops were placed into the operative eye. A sterile eye shield was placed over the operative eye, and the patient was transported to the postoperative recovery area having tolerated the procedure well. Postoperative instructions were given along with a postoperative appointment. The patient was advised to call with any questions or concerns. [facility] /[id number]
[2018-01-21 12:14] VITALS: BP 136/55
== END 2018-01-21 12:35 | disposition home or self-care (01) ==
LOC: DL.SDS 09:40
PROVIDERS: ATTEND Ophthalmology
DX: H25.811 Combined forms of age-related cataract, right eye (principal); I11.0 Hypertensive heart disease with heart failure; I50.9 Heart failure, unspecified; E11.9 Type 2 diabetes mellitus without complications; I25.10 Atherosclerotic heart disease of native coronary artery without angina pectoris; I48.92 Unspecified atrial flutter; I42.9 Cardiomyopathy, unspecified; E78.5 Hyperlipidemia, unspecified; K21.9 Gastro-esophageal reflux disease without esophagitis; F41.9 Anxiety disorder, unspecified; Z79.84 Long term (current) use of oral hypoglycemic drugs; Z79.899 Other long term (current) drug therapy
CPT/HCPCS: 00142; 66984; A9270; J1100; J1642; J2250; J3370; J7050; V2787

== ENCOUNTER 2019-02-07 14:22 | Emergency (ER) | payer MEDICARE, BC ==
[2019-02-07 14:32] VITALS: BP 131/64
[2019-02-07 15:41] LABS: ANION GAP 18.6
[2019-02-07] MEDS ORDERED: Pantoprazole 40 MG Vial IVPUSH ONE (16:12)
[2019-02-07] MEDS ORDERED: Pantoprazole 40 MG in Sodium Chloride 0.9% 100 ML IV SCH (16:15)
--- NOTE | 2019-02-07 16:38 | EDM.PDOC ---
Scribed by Kari Redd 02/07/19 8515 for Augusto Gardner MD ED HPI GENERAL MEDICAL PROBLEM - General Chief Complaint: Gastrointestinal Problem Stated Complaint: BLEEDING IN STOMACH HE THINKS? Time Seen by Provider: 02/07/19 15:01 Source of Information: Reports: Patient, RN, RN Notes Reviewed History Limitations: Reports: No Limitations - History of Present Illness INITIAL COMMENTS - FREE TEXT/NARRATIVE: Pt arrives to ER from home by POV with c/o finding black foul smelling stool in his ostomy bag today. At first pt states he was small bits of black material mixed with brown stool. As the day progressed the stool became purely melanotic and pudding consistency. Pt denies abdominal pain, nausea, or vomiting. Pt is on Eliquis for A-fib/A-flutter. 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 Pt has Hx of rectal CA and prostate CA. Pt denies lightheadedness or syncope. Onset: Today Duration: Constant Location: Reports: Abdomen Severity: Moderate Improves with: Reports: None Worsens with: Reports: None Associated Symptoms: Reports: No Other Symptoms - Related Data Allergies Allergy/AdvReac Type Severity Reaction Status Date / Time amphotericin B Allergy UNKNOWN Verified 02/07/19 14:40 lactose Allergy Nausea Verified 02/07/19 14:40 lisinopril Allergy Cough Verified 02/07/19 14:40 oxycodone HCl [From Percocet] Allergy Hives Verified 02/07/19 14:40 propoxyphene Allergy UNKNOWN Verified 02/07/19 14:40 simvastatin Allergy Muscle Verified 02/07/19 14:40 Aches terazosin [Terazosin] Allergy UNKNOWN Verified 02/07/19 14:40 verapamil [Verapamil] Allergy UNKNOWN Verified 02/07/19 14:40 Home Meds: Home Meds Cyanocobalamin (Vitamin B-12) [B-12] 1,000 mcg INJECT .10THOFMONTH 08/08/14 [ History] Isosorbide Mononitrate [Imdur] 30 mg PO DAILY 08/08/14 [History] Magnesium Oxide 1,500 mg PO TID 08/08/14 [History] Metoprolol Tartrate [Lopressor] 50 mg PO Q12HR 08/08/14 [History] Multivitamin [Multi-Vitamin Daily] 1 each PO DAILY 08/08/14 [History] Omeprazole 20 mg PO DAILY 08/08/14 [History] Potassium Gluconate 99 mg PO BEDTIME 08/08/14 [History] amLODIPine Besylate [Amlodipine Besylate] 5 mg PO DAILY 08/08/14 [History] metFORMIN [Glucophage] 1,000 mg PO BID 11/30/15 [History] Albuterol/Ipratropium [Combivent Respimat] 2 puff IH QID PRN 11/26/16 [History] Amitriptyline [Elavil] 10 mg PO BEDTIME 11/26/16 [History] Insuln Asp Prot/Insulin Aspart [NovoLOG Mix 70-30] 24 units SQ DAILY 06/21/17 [ History] Apixaban [Eliquis] 2.5 mg PO BID 08/26/17 [History] Aspirin [Adult Low Dose Aspirin EC] 81 mg PO .1800 08/26/17 [History] Clobetasol Propionate [Temovate Cream] 1 applic TOP BID PRN 08/26/17 [History] Mirabegron [Myrbetriq] 50 mg PO .NOON 08/26/17 [History] glipiZIDE [Glucotrol] 10 mg PO BID 08/26/17 [History] metFORMIN [Glucophage] 500 mg PO .NOON 08/26/17 [History] Furosemide [Lasix] 40 mg PO BID #60 tablet 08/28/17 [Rx] hydrOXYzine HCl [Atarax] 25 mg PO BEDTIME #7 tablet 08/28/17 [Rx] Insulin Aspart [NovoLOG] 12 unit SQ BID 02/07/19 [History] Past Medical History HEENT History: Reports: Cataract, Impaired Vision Cardiovascular History: Reports: Heart Failure, High Cholesterol, Hypertension Respiratory History: Reports: Sleep Apnea, Other (See Below) Other Respiratory History: Was told that 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 Gastrointestinal History: Reports: Chronic Constipation, Chronic Diarrhea, GERD Other Gastrointestinal History: colostomy Genitourinary History: Reports: BPH, Retention, Urinary, UTI, Recurrent, Other ( See Below) Musculoskeletal History: Reports: Back Pain, Chronic, Other (See Below) Other Musculoskeletal History: degenerative disc disease, Neurological History: Reports: None Psychiatric History: Reports: None Endocrine/Metabolic History: Reports: Diabetes, Type II Hematologic History: Reports: B12 Deficiency, Iron Deficiency Other Hematologic History: HX OF IRON DEFICIENCY Immunologic History: Reports: None Oncologic (Cancer) History: Reports: Basal Cell Carcinoma, Colon, Prostate Other Oncologic History: rectal Dermatologic History: Reports: None - Infectious Disease History Infectious Disease History: Reports: Chicken Pox, Measles, Mumps - Past Surgical History HEENT Surgical History: Reports: Adenoidectomy, Cataract Surgery, Tonsillectomy Other HEENT Surgeries/Procedures: CATARACT SURGERY TO LEFT EYE Cardiovascular Surgical History: Reports: None Respiratory Surgical History: Reports: Other (See Below) Other Respiratory Surgeries/Procedures: lung damage from a gate GI Surgical History: Reports: Cholecystectomy, Colonoscopy, Colostomy, Hernia Repair/Other Other GI Surgeries/Procedures: hemorrhoid Male Surgical History: Reports: Other (See Below) Other Male Surgeries/Procedures: seeds in for prostate ca Neurological Surgical History: Reports: Laminectomy Musculoskeletal Surgical History: Reports: Other (See Below) Other Musculoskeletal Surgeries/Procedures:: backsurgery Social & Family History - Family History Family Medical History: Noncontributory Oncologic: Reports: Ovarian, Prostate - Tobacco Use Smoking Status *Q: Never Smoker - Caffeine Use Caffeine Use: Reports: Coffee Other Caffeine Use: mostly decaf - Recreational Drug Use Recreational Drug Use: No - Living Situation & Occupation Living situation: Reports: , with Spouse Occupation: Retired ED ROS GENERAL - Review of Systems Review Of Systems: ROS reveals no pertinent complaints other than HPI. ED EXAM, GI/ABD - Physical Exam Exam: See Below Exam Limited By: No Limitations General Appearance: Alert, WD/WN, No Apparent Distress Eyes: Bilateral: Normal Appearance (No scleral icterus), EOMI Nose: Normal Inspection, Normal Mucosa, No Blood Throat/Mouth: Normal Inspection, Normal Lips, Normal Teeth, Normal Gums, Normal Oropharynx, Normal Voice, No Airway Compromise Head: Atraumatic, Normocephalic Neck: Normal Inspection, Supple, Non-Tender, Full Range of Motion Respiratory/Chest: No Respiratory Distress, Lungs Clear, Normal Breath Sounds, No Accessory Muscle Use, Chest Non-Tender Cardiovascular: Regular Rate, Rhythm, No Edema GI/Abdominal Exam: Normal Bowel Sounds, Soft, No Organomegaly, No Distention, No Abnormal Bruit, No Mass, Pelvis Stable, Tender (Very slight epigastric discomfort to palpation), Other (Ostomy bag contains melena) (Male) Exam: Deferred Rectal (Males) Exam: Deferred Back Exam: Normal Inspection Extremities: Normal Inspection, Normal Range of Motion, Non-Tender, Normal Capillary Refill, No Pedal Edema Neurological: Alert, Oriented, CN II-XII Intact, Normal Cognition, Normal Gait, No Motor/Sensory Deficits Psychiatric: Anxious Skin Exam: Warm, Dry, Intact, Normal Color, No Rash Course - Vital Signs Last Recorded V/S: Last Vital Signs Temp 98.1 F 02/07/19 14:31 Pulse 75 02/07/19 14:31 Resp 18 02/07/19 14:31 BP 131/64 02/07/19 14:31 Pulse Ox 96 02/07/19 14:31 - Orders/Labs/Meds Orders: Active Orders 24 hr Category Date Time Status Implanted Port Access [RC] ONETIME Care 02/07/19 15:03 Active UA RFX FABIANA AND CULT IF INDIC [URIN] Stat Lab 02/07/19 16:04 Received Pantoprazole [ProTONIX IV] 40 mg Med 02/07/19 16:15 Active Sodium Chloride 0.9% [Normal Saline] 100 ml IV .CONTINUOS Medication Orders Pantoprazole Sodium 40 mg/ (Sodium Chloride) 100 mls @ 20 mls/hr IV .CONTINUOS BAILEY Labs: Laboratory Tests 02/07/19 02/07/19 02/07/19 Range/Units 15:12 15:12 15:12 WBC 6.5 (5.0-10.0) 10^3/uL RBC 3.63 L (4.6-6.2) 10^6/uL Hgb 11.5 L (14.0-18.0) g/dL Hct 36.0 L (40.0-54.0) % MCV 99.2 (80-100) fL MCH 31.7 (27.0-34.0) pg MCHC 31.9 L (33.0-35.0) g/dL Plt Count 199 (150-450) 10^3/uL Neut % (Auto) 74.1 (42.2-75.2) % Lymph % (Auto) 16.0 L (20.5-50.1) % [place] % (Auto) 9.0 H (2-8) % Eos % (Auto) 0.6 L (1.0-3.0) % Baso % (Auto) 0.3 (0.0-1.0) % PT 10.3 (9.0-12.0) SEC INR 1.0 (0.9-1.2) APTT 23.4 (22.0-34.0) SEC Sodium 137 (135-145) mmol/L Potassium 4.6 (3.6-5.0) mmol/L Chloride 95 L (101-111) mmol/L Carbon Dioxide 28.0 (21.0-31.0) mmol/L Anion Gap 18.6 BUN 51 H D (7-18) mg/dL Creatinine 1.5 H (0.6-1.3) mg/dL Est Cr Clr Drug Dosing 36.95 mL/min Estimated GFR (MDRD) 44 BUN/Creatinine Ratio 34.00 Glucose 212 H (74-105) mg/dL Calcium 8.9 (8.4-10.2) mg/dl Total Bilirubin 0.8 (0.2-1.0) mg/dL AST 26 (10-42) IU/L ALT 14 (10-60) IU/L Alkaline Phosphatase 30 L (42-121) IU/L Total Protein 6.4 L (6.7-8.2) g/dl Albumin 3.7 (3.2-5.5) g/dl Globulin 2.7 Albumin/Globulin Ratio 1.37 Amylase 28 (28-100) U/L Lipase 39 (22-51) U/L Stool is black melena/Hemoccult positive. Meds: Medications Generic Name Dose Route Start Last Admin Trade Name Freq PRN Reason Stop Dose Admin Pantoprazole Sodium 40 mg/ 100 mls @ 20 mls/hr 02/07/19 16:15 Sodium Chloride IV .CONTINUOS BAILEY Discontinued Medications Generic Name Dose Route Start Last Admin Trade Name Freq PRN Reason Stop Dose Admin Pantoprazole Sodium 80 mg 02/07/19 16:12 Protonix Iv IVPUSH 02/07/19 16:13 .BOLUS ONE Departure - Departure Time of Disposition: 16:23 Disposition: DC/Tfer to Acute Hospital 02 Condition: Critical Clinical Impression: Upper gastrointestinal bleed, Melena - Discharge Information *PRESCRIPTION DRUG MONITORING PROGRAM REVIEWED*: No *COPY OF PRESCRIPTION DRUG MONITORING REPORT IN PATIENT SHARONDA: No Forms: ED Department Discharge, Interfacility Transfer EMTALA - My Orders Last 24 Hours: My Active Orders 02/07/19 15:03 Implanted Port Access [RC] ONETIME 02/07/19 16:04 UA RFX FABIANA AND CULT IF INDIC [URIN] Stat 02/07/19 16:15 Pantoprazole [ProTONIX IV] 40 mg Sodium Chloride 0.9% [Normal Saline] 100 ml IV .CONTINUOS - Assessment/Plan Last 24 Hours: My Active Orders 02/07/19 15:03 Implanted Port Access [RC] ONETIME 02/07/19 16:04 UA RFX FABIANA AND CULT IF INDIC [URIN] Stat 02/07/19 16:15 Pantoprazole [ProTONIX IV] 40 mg Sodium Chloride 0.9% [Normal Saline] 100 ml IV .CONTINUOS I have read and agree with the documentation that has been completed regarding this visit. By signing this record, I attest that the documentation was completed in my physical presence and is an accurate record of the encounter.
== END 2019-02-07 16:59 ==
LOC: DL.ED 14:22
DX: K92.1 Melena (principal); E78.00 Pure hypercholesterolemia, unspecified; I10 Essential (primary) hypertension; E11.9 Type 2 diabetes mellitus without complications; D50.9 Iron deficiency anemia, unspecified; Z79.899 Other long term (current) drug therapy; Z88.5 Allergy status to narcotic agent; Z88.8 Allergy status to other drugs, medicaments and biological substances; Z79.4 Long term (current) use of insulin; Z79.82 Long term (current) use of aspirin; Z88.1 Allergy status to other antibiotic agents
CPT/HCPCS: 36415; 80053; 81001; 82150; 82272; 83690; 85025; 85610; 85730; 87086; 96365; 99285; C9113; J7050; 87088; 87186

== ENCOUNTER 2019-09-17 08:18 | Day surgery (SDC) | payer OTHER, MEDICARE, BC ==
[~2019-09-17 08:18] MED LIST: Benzocaine 20% Topical Spray UD MUCMEM ONE; Midazolam 1 MG/ML 2 ML SDV ONE
[2019-09-17] MEDS ORDERED: Midazolam 1 MG/ML 2 ML SDV IV ONE ×7 (08:19→09:52)
[2019-09-17] MEDS ORDERED: Dextrose 5%-0.45% NaCl 1,000 ML IV SCH (08:45)
[2019-09-17] MEDS ORDERED: Benzocaine 20% Topical Spray UD MUCMEM ONE ×3 (09:37→09:38)
[2019-09-17 12:12] VITALS: BP 168/80; PULSE 77
--- NOTE | 2019-09-17 12:15 | OR ---
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 He is having some increased pressure, and for followup, [facility] has requested endoscopy. PROCEDURE IN DETAIL: After adequate preparation, a gastroscope was inserted into the oral cavity. This was passed down to the hypopharynx. Examination of the vocal cords and the arytenoid areas seem to be normal. 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 I was able the advanced the scope into the esophagus and insert a biopsy forceps. On withdrawal of the forceps, it was somewhat difficult to biopsy this area with the patient's breathing and location was in the area where the tissue kept collapsing. However, there is a definite mass there and it certainly is not normal. 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 Air was suctioned from the esophagus and oral cavity and the scope removed. [facility] /[id number]
== END 2019-09-17 12:00 | disposition home or self-care (01) ==
LOC: DL.ENDO 08:18
PROVIDERS: ATTEND Surgery
DX: C13.9 Malignant neoplasm of hypopharynx, unspecified (principal)
CPT/HCPCS: 43202; 88305; A9270; J1642; J2250; J7042; 43239